=== PATIENT | male | born 2000 | race African-American/Black ===

== ENCOUNTER 2025-06-28 05:29 | Emergency (ER) | payer MEDICAID, OTHER ==
[~2025-06-28] VITALS: Ht 167.6 cm; Wt 68.0 kg
[2025-06-28 05:52] VITALS: BP 140/87; TEMP 98; O2SAT 97
== END 2025-06-28 06:08 | disposition left against medical advice (07) ==
LOC: ER 05:30
DX: Z53.21 Procedure and treatment not carried out due to patient leaving prior to being seen by health care provider (principal)